=== PATIENT | female | born 2000 | race Caucasian/White ===

== ENCOUNTER 2022-07-09 10:23 | Emergency (ER) | payer BC, OTHER ==
[2022-07-09 10:32] VITALS: BP 137/78; PULSE 99; RESP 18; TEMP 97.8
[2022-07-09] MEDS ORDERED: SODIUM CHLORIDE 0.9% 1,000 ML IV ONE (11:26)
[2022-07-09 11:52] LABS: Basophils % (A) 0 %; Eosinophils # (A) 0.1 k/uL (0-0.7); Eosinophils % (A) 2 %; HCT 40.3 % (34.0-46.0); HGB 13.7 gm/dL (11.4-16.0); Lymphocytes # (A) 1.2 k/uL (1.0-4.8); Lymphocytes % (A) 21 %; MCH 29.9 pg (25.0-35.0); MCHC 33.9 g/dL (31.0-37.0); MCV 88.1 fL (80.0-100.0); Mean Platelet Volume 7.7; Monocytes # (A) 0.3 k/uL (0-1.0); Monocytes % (A) 5 %; Neutrophils # (A) 3.9 k/uL (1.3-7.7); Neutrophils % (A) 70 %; Platelet Count 217 k/uL (150-450); RBC 4.57 m/uL (3.80-5.40); WBC 5.6 k/uL (3.8-10.6)
--- NOTE | 2022-07-09 11:58 | ED ---
General Adult HPI - General Chief complaint: Vaginal Bleeding Stated complaint: 12 wks preg, bleeding & cramping Time Seen by Provider: 07/09/22 11:19 Source: patient, RN notes reviewed Mode of arrival: ambulatory Limitations: no limitations - History of Present Illness Initial comments: 21-year-old female with no significant past medical history presents to the emergency department with chief complaint of vaginal bleeding. She reports bright red blood vaginal blood since last night. She complains of accompanying symptoms of pelvic cramping and lower back pain. She has not tried anything for her symptoms. She denies headache, dizziness, fatigue, shortness of breath, chest pain, palpitations, abdominal pain, nausea, vomiting, diarrhea dysuria, hematuria. Denies hx of trauma or recent falls. Denies hx of miscarriage. She reports having a yeast infection last week and was treated with monistat. - Related Data Allergies Allergy/AdvReac Type Severity Reaction Status Date / Time amoxicillin Allergy Rash/Hives Verified 07/09/22 10:32 Review of Systems ROS Statement: Those systems with pertinent positive or pertinent negative responses have been documented in the HPI. ROS Other: All systems not noted in ROS Statement are negative. Past Medical History Past Medical History: No Reported History History of Any Multi-Drug Resistant Organisms: None Reported Past Surgical History: No Surgical Hx Reported Past Psychological History: No Psychological Hx Reported Smoking Status: Current every day smoker Past Alcohol Use History: None Reported Past Drug Use History: None Reported General Exam Limitations: no limitations General appearance: alert, in no apparent distress Head exam: Present: atraumatic, normocephalic, normal inspection Eye exam: Present: normal appearance, PERRL, EOMI. Absent: scleral icterus, conjunctival injection, periorbital swelling ENT exam: Present: normal exam, mucous membranes moist Neck exam: Present: normal inspection. Absent: tenderness, meningismus, lymphadenopathy Respiratory exam: Present: normal lung sounds bilaterally. Absent: respiratory distress, wheezes, rales, rhonchi, stridor Cardiovascular Exam: Present: regular rate, normal rhythm, normal heart sounds. Absent: systolic murmur, diastolic murmur, rubs, gallop, clicks GI/Abdominal exam: Present: soft, normal bowel sounds. Absent: distended, tenderness, guarding, rebound, rigid Extremities exam: Present: normal inspection, full ROM, normal capillary refill. Absent: tenderness, pedal edema, joint swelling, calf tenderness Back exam: Present: normal inspection Neurological exam: Present: alert, oriented X3, CN II-XII intact Psychiatric exam: Present: normal affect, normal mood Skin exam: Present: warm, dry, intact, normal color. Absent: rash Course Vital Signs 07/09/22 07/09/22 10:29 13:03 Temperature 97.8 F Pulse Rate 99 Respiratory 18 18 Rate Blood Pressure 137/78 O2 Sat by Pulse 99 Oximetry Medical Decision Making - Medical Decision Making Was pt. sent in by a medical professional or institution (, [facility], [facility], urgent care, hospital, or [facility]...) When possible be specific @ -[No] Did you speak to anyone other than the patient for history (EMS, parent, family, police, friend...)? What history was obtained from this source @ -[No] Did you review nursing and triage notes (agree or disagree)? Why? @ -[I reviewed and agree with nursing and triage notes] Were old charts reviewed (outside hosp., previous admission, EMS record, old EKG, old radiological studies, urgent care reports/EKG's, [facility] records)? Report findings @ -[No old charts were reviewed] Differential Diagnosis (chest pain, altered mental status, abdominal pain women, abdominal pain men, vaginal bleeding, weakness, fever, dyspnea, syncope, headache, dizziness, GI bleed, back pain, seizure, CVA, palpatations, mental health)? @ -[not applicable] EKG interpreted by me (3pts min.). @ -[As above] X-rays interpreted by me (1pt min.). @ -[None done] CT interpreted by me (1pt min.). @ -[None done] U/S interpreted by me (1pt. min.). @ - Intrauterine demise impending , no heart tones were detected What testing was considered but not performed or refused? (CT, X-rays, U/S, labs)? Why? @ -[None] What meds were considered but not given or refused? Why? @ -[None] Did you discuss the management of the patient with other professionals (professionals i.e. , [facility], [facility], lab, RT, psych nurse, oncology social work, real estate lawyer, teacher, cra officer, counseling case manager)? Give summary @ -[No] Was smoking cessation discussed for >3mins.? @ -[No] Was critical care preformed (if so, how long)? @ -[No] Were there social determinants of health that impacted care today? How? (Homelessness, low income, unemployed, alcoholism, drug addiction, transportation, low edu. Level, literacy, decrease access to med. care, fpc, rehab)? @ -[No] Was there de-escalation of care discussed even if they declined (Discuss DNR or withdrawal of care, Hospice)? DNR status @ -[No] What co-morbidities impacted this encounter? (DM, HTN, Smoking, COPD, CAD, Cancer, CVA, ARF, Chemo, Hep., AIDS, mental health diagnosis, sleep apnea, morbi d obesity)? @ -[None] Was patient admitted / discharged? Hospital course, mention meds given and route, prescriptions, significant lab abnormalities, going to OR and other pertinent info. @ -21-year-old female presents to the emergency department with a chief complaint of vaginal bleeding in . She history and physical pe rformed. Physical exam is essentially unremarkable heart rate regular rate and rhythm lung sounds clear to auscultation bilaterally. C ultrasound results above. Labs remarkable for Labs remarkable for WBC is 5.6, hemoglobin 13.7, beta hCG 1628.3 Patient was given IV fluids with symptomatic relief in the emergency department. I recommend close follow-up with her [employer] within 1-2 days. Patient was discharged in stable condition, and all return precautions were discussed. Patient verbalized understanding. I discussed the case with YASMANI Laird who agrees with plan of care. Undiagnosed new problem with uncertain prognosis? @ -[No] Drug Therapy requiring intensive monitoring for toxicity (Heparin, Nitro, Insulin, Cardizem)? @ -[No] Were any procedures done? @ -[No] Diagnosis/symptom? @ -threatened demise Acute, or Chronic, or Acute on Chronic? @ -acute Uncomplicated (without systemic symptoms) or Complicated (systemic symptoms)? @ -uncomplicated Side effects of treatment? @ -[No] Exacerbation, Progression, or Severe Exacerbation? @ -[No] Poses a threat to life or bodily function? How? (Chest pain, USA, CA, pneumonia, PE, COPD, DKA, ARF, appy, cholecystitis, CVA, Diverticulitis, Homicidal, Suicidal, threat to staff... and all critical care pts) @ -[No] - Lab Data Result diagrams: 07/09/22 11:42 07/09/22 11:42 Lab Results 07/09/22 07/09/22 07/09/22 Range/Units 11:40 11:42 11:42 WBC 5.6 (3.8-10.6) k/uL RBC 4.57 (3.80-5.40) m/uL Hgb 13.7 (11.4-16.0) gm/dL Hct 40.3 (34.0-46.0) % MCV 88.1 (80.0-100.0) fL MCH 29.9 (25.0-35.0) pg MCHC 33.9 (31.0-37.0) g/dL RDW 13.0 (11.5-15.5) % Plt Count 217 (150-450) k/uL MPV 7.7 Neutrophils % 70 % Lymphocytes % 21 % Monocytes % 5 % Eosinophils % 2 % Basophils % 0 % Neutrophils # 3.9 (1.3-7.7) k/uL Lymphocytes # 1.2 (1.0-4.8) k/uL Monocytes # 0.3 (0-1.0) k/uL Eosinophils # 0.1 (0-0.7) k/uL Basophils # 0.0 (0-0.2) k/uL Sodium 141 (137-145) mmol/L Potassium 3.8 (3.5-5.1) mmol/L Chloride 108 H (98-107) mmol/L Carbon Dioxide 26 (22-30) mmol/L Anion Gap 7 mmol/L BUN 8 (7-17) mg/dL Creatinine 0.58 (0.52-1.04) mg/dL Est GFR (CKD-EPI)AfAm >90 (>60 ml/min/1.73 sqM) Est GFR (CKD-EPI)NonAf >90 (>60 ml/min/1.73 sqM) Glucose 86 (74-99) mg/dL Calcium 9.2 (8.4-10.2) mg/dL HCG, Quant 1628.3 mIU/mL Blood Type Blood Type Confirm A Positive Blood Type Recheck Bld Type Recheck Status Antibody Screen Spec Expiration Date 07/09/22 Range/Units 11:42 WBC (3.8-10.6) k/uL RBC (3.80-5.40) m/uL Hgb (11.4-16.0) gm/dL Hct (34.0-46.0) % MCV (80.0-100.0) fL MCH (25.0-35.0) pg MCHC (31.0-37.0) g/dL RDW (11.5-15.5) % Plt Count (150-450) k/uL MPV Neutrophils % % Lymphocytes % % Monocytes % % Eosinophils % % Basophils % % Neutrophils # (1.3-7.7) k/uL Lymphocytes # (1.0-4.8) k/uL Monocytes # (0-1.0) k/uL Eosinophils # (0-0.7) k/uL Basophils # (0-0.2) k/uL Sodium (137-145) mmol/L Potassium (3.5-5.1) mmol/L Chloride (98-107) mmol/L Carbon Dioxide (22-30) mmol/L Anion Gap mmol/L BUN (7-17) mg/dL Creatinine (0.52-1.04) mg/dL Est GFR (CKD-EPI)AfAm (>60 ml/min/1.73 sqM) Est GFR (CKD-EPI)NonAf (>60 ml/min/1.73 sqM) Glucose (74-99) mg/dL Calcium (8.4-10.2) mg/dL HCG, Quant mIU/mL Blood Type A Positive Blood Type Confirm Blood Type Recheck No Previous Record Bld Type Recheck Status CABO Indicated Antibody Screen NEGATIVE Spec Expiration Date 07/12/20222341 Disposition Clinical Impression: demise, Miscarriage at 8 to 28 weeks gestation Disposition: HOME SELF-CARE Condition: Stable Instructions (If sedation given, give patient instructions): Miscarriage (ED) Is patient prescribed a controlled substance at d/c from ED?: No Referrals: None,Stated [Primary Care Provider] - 1-2 days Gloria Rodriguez MD [STAFF PHYSICIAN] - 1-2 days Time of Disposition: 12:52
[2022-07-09 12:11] LABS: African American GFR (CKD) >90 (>60 ml/min/1.73 sqM); Anion Gap 7 mmol/L; Blood Urea Nitrogen 8 mg/dL (7-17); Calcium 9.2 mg/dL (8.4-10.2); Carbon Dioxide 26 mmol/L (22-30); Chloride 108 mmol/L (98-107); Glucose 86 mg/dL (74-99); Non-African American GFR(CKD) >90 (>60 ml/min/1.73 sqM); Potassium 3.8 mmol/L (3.5-5.1); Sodium 141 mmol/L (137-145)
[2022-07-09 12:25] LABS: HCG,Quantitative Serum 1628.3 mIU/mL
--- NOTE | 2022-07-09 12:32 | US ---
EXAMINATION TYPE: Transabdominal DATE OF EXAM: 07/09/2022 12:20 PM COMPARISON: NONE CLINICAL HISTORY: vaginal bleeding. Patient states spotting that started this morning. Positive beta hCG test. EXAM PERFORMED: Transabdominal (TA) EXAM MEASUREMENTS: GESTATIONAL AGE / DATING Physician Established: Not yet established Dates by LMP: (12 weeks/5 days) EDC: 01/16/2023 Dates by First Scan: No previous this is first scan Dates by Current Scan for: ( 8 weeks/4 days) EDC: 02/14/2023 MATERNAL ANATOMY Uterus: 11.4 x 6.6 x 5.0 cm Right Ovary: 3.6 x 1.6 x 1.8 cm Left Ovary: 3.2 x 2.0 x 1.5 cm Post CDS / Adnexa: no free fluid Presence of free fluid: no Presence of corpus luteal cyst: no Presence of subchorionic bleed: no GESTATION / SURVEY CRL: 2.0 cm (8 weeks/4 days) MSD: seen, not measured Yolk Sac (normal less than 6mm): Not visualized at time of scan Heart Rate: 0 bpm IUP: Demise Date of LMP: 04/11/2022, G1 Beta HcG (if available): Not available at this time GS and CRL visualized. No yolk sac seen. Negative FHT's with m-mode and color doppler performed. Single intrauterine gestation seen as gestational sac and pole identified. Yolk sac not clearly seen. Abnormal appearance to the gestational sac which appears elongated inferiorly. heart ton es cannot be detected despite several attempts. No free fluid in pelvic cul-de-sac. Both ovaries identified. No suspicious adnexal mass seen. IMPRESSION: Ultrasound findings are consistent with intrauterine demise and likely impending ab ortion as detailed above.
== END 2022-07-09 13:04 | disposition home or self-care (01) ==
LOC: EC 10:23
DX: O03.9 Complete or unspecified spontaneous abortion without complication (principal); O36.4XX0 Maternal care for intrauterine death, not applicable or unspecified; O99.333 Smoking (tobacco) complicating pregnancy, third trimester; F17.200 Nicotine dependence, unspecified, uncomplicated; Z88.0 Allergy status to penicillin; Z3A.12 12 weeks gestation of pregnancy
CPT/HCPCS: 36415; 76801; 80048; 84702; 85025; 86850; 86900; 86901; 96360; 99284

== ENCOUNTER 2024-07-06 06:00 | Inpatient (IN) | payer OTHER ==
[2024-07-06] MEDS: LACTATED RINGERS 1,000 ML IV SCH (06:30)
[2024-07-06] MEDS ORDERED: miSOPROStoL 200 MCG TAB PO PRN (06:31)
[2024-07-06] MEDS ORDERED: METHYLERGONOVINE 0.2 MG/ML 1 ML AMP IM PRN (06:31)
[2024-07-06] MEDS ORDERED: TERBUTALINE 1 MG/ML VIAL SQ PRN (06:31)
[2024-07-06] MEDS ORDERED: miSOPROStoL 200 MCG TAB RECTAL PRN (06:31)
[2024-07-06] MEDS ORDERED: OXYTOCIN 10 UNIT/ML 1 ML VIAL IM PRN (06:31)
[2024-07-06] MEDS ORDERED: CARBOPROST TROMETHAMINE 250 MCG/ML 1 ML AMP IM PRN (06:31)
[2024-07-06] MEDS ORDERED: LIDOCAINE 0.5% (PF) 5 MG/ML (50 ML SDV) SQ PRN (06:31)
[2024-07-06] MEDS ORDERED: TRANEXAMIC 1,000 MG/100ML-NACL 1,000 MG in EMPTY BAG 1 BAG IV PRN (06:31)
[2024-07-06 07:06] LABS: Basophils % (A) 0 %; Eosinophils # (A) 0.2 k/uL (0-0.7); Eosinophils % (A) 2 %; HCT 36.7 % (34.0-46.0); HGB 11.7 gm/dL (11.4-16.0); Lymphocytes # (A) 1.5 k/uL (1.0-4.8); Lymphocytes % (A) 17 %; MCH 28.6 pg (25.0-35.0); MCV 89.5 fL (80.0-100.0); Mean Platelet Volume 9.2; Monocytes # (A) 0.5 k/uL (0-1.0); Monocytes % (A) 6 %; Neutrophils # (A) 6.9 k/uL (1.3-7.7); Neutrophils % (A) 74 %; Platelet Count 196 k/uL (150-450); RDW 13.7 % (11.5-15.5); WBC 9.2 k/uL (3.8-10.6)
[2024-07-06] MEDS ORDERED: NALBUPHINE 10 MG/ML (10 ML MDV) IV PRN (08:24)
--- NOTE | 2024-07-06 08:24 | P.HPOB ---
History of Present Illness H&P Date: 07/06/24 Chief Complaint: IUP at 40 and 4/7 weeks, SGA This is a 23-year-old 3 para 0-0-2-0 at 40-4/7 weeks that presents to labor and delivery for induction of labor secondary to postdates and SGA. Patient has been receiving routine care which has been essentially uncomplicated. Patient did have an ultrasound on revealing an estimated weight of 7th percentile, all normal KARLA, normal testing with a BPP of 8 out of 8, normal UA Dopplers. Patient was counseled on ultrasound findings on and was hoping to avoid induction of labor, after discussion patient agreed if she did not go into labor through the weekend she was willing to present today for induction. Patient does note good movement she denies contractions through the weekend. On blood work this patient has a blood type of A+, rubella status immune, hepatitis B surface engine negative, HIV negative, RPR is nonreactive, grew beta strep cultures negative. Review of Systems Constitutional: Denies chills, Denies fatigue, Denies fever Ears, nose, mouth and throat: Denies headache Cardiovascular: Reports leg edema Respiratory: Denies dyspnea Gastrointestinal: Denies constipation, Denies diarrhea, Denies nausea, Denies vomiting Genitourinary: Reports Past Medical History Past Medical History: No Reported History History of Any Multi-Drug Resistant Organisms: None Reported Past Surgical History: No Surgical Hx Reported Past Anesthesia/Blood Transfusion Reactions: No Reported Reaction Past Psychological History: No Psychological Hx Reported Smoking Status: Never smoker Past Alcohol Use History: None Reported Past Drug Use History: None Reported - Past Family History Father Family Medical History: No Reported History Medications and Allergies Home Medications Medication Instructions Recorded Confirmed Type Vit No.179/Iron/Folic 1 tab PO DAILY 07/06/24 07/06/24 History [ Tablet] Allergies Allergy/AdvReac Type Severity Reaction Status Date / Time amoxicillin Allergy Rash/Hives Verified 07/06/24 06:30 Exam Osteopathic Statement: *. No significant issues noted on an osteopathic structural exam other than those noted in the History and Physical/Consult. Vital Signs Temp Pulse Resp BP Pulse Ox 07/06/24 06:42 97.9 F 75 16 122/66 99 Intake and Output 07/05/24 07/06/24 07/06/24 22:59 06:59 14:59 Other: Weight 93.44 kg Targeted physical exam is performed this date General Is well-nourished well- developed female in no acute distress, breathing is nonlabored, heart has a regular rate and rhythm, abdomen is gravid, on cervical exam she is 1/60/-2 station amniotomy is attempted with no fluid obtained. heart tones are noted to be category 1 and she is nikko irregularly. Pitocin has begun. Results Result Diagrams: 07/06/24 06:30 Assessment and Plan (1) Post-dates Current Visit: Yes Status: Acute Code(s): O48.0 - POST-TERM SNOMED Code(s): 11760025 (2) SGA (small for gestational age), , affecting care of mother, antepartum Current Visit: Yes Status: Acute Code(s): O36.5990 - MATERN CARE FOR OTH OR SUSP POOR FETL GRTH, UNSP TRI, UNSP SNOMED Code(s): 111690125 Plan: 23-year-old 3 para 0-0-2-0 at 40-4/7 weeks presents for induction of labor. Patient is admitted upon evaluation Pitocin is started for induction of labor. Patient is counseled on options for analgesia including Nubain, nitrous, epidural. She will consider. Continuous monitoring, clear liquid diet as tolerated.
[2024-07-06] MEDS: OXYTOCIN 30 UNITS/500 ML NS 30 UNIT in SALINE 1 500ML.BAG IV SCH (11:30)
[2024-07-06] MEDS ORDERED: fentaNYL (PF) 50 MCG/ML 5 ML AMP ONE (18:12)
[2024-07-06] MEDS ORDERED: SODIUM CHLORIDE 0.9% 250 ML BAG ONE (18:12)
[2024-07-06] MEDS ORDERED: ROPIVACAINE 5 MG/ML 30 ML VIAL ONE (18:12)
[2024-07-07] MEDS: ONDANSETRON 4 MG/2 ML VIAL IVP STA (00:39)
[2024-07-07] MEDS: ACETAMINOPHEN IV (For NPO) 1,000 MG in EMPTY BAG 1 BAG IVPB STA (02:50)
[2024-07-07] MEDS ORDERED: ZOLPIDEM 5 MG TAB PO PRN (03:05)
[2024-07-07] MEDS ORDERED: diphenhydrAMINE 50 MG CAP PO PRN (03:05)
[2024-07-07] MEDS ORDERED: diphenhydrAMINE 50 MG/ML 1 ML VIAL IVP PRN ×2 (03:05)
[2024-07-07] MEDS ORDERED: diphenhydrAMINE 25 MG CAP PO PRN (03:05)
[2024-07-07] MEDS ORDERED: SIMETHICONE 80 MG CHEWABLE PO PRN (03:05)
[2024-07-07] MEDS ORDERED: LANOLIN CREAM 1 GM TUBE TOPICAL PRN (03:05)
[2024-07-07] MEDS ORDERED: HYDROCORTISONE 2.5% RECTAL CREAM 30 GM TUBE RECTAL PRN (03:05)
--- NOTE | 2024-07-07 03:05 | P.PROBDLV ---
Vaginal Delivery Note - . Vaginal Delivery Note: 23-year-old 1 para 0 at 40-4/7 weeks presented this morning for induction of labor secondary to SGA and postdates. Patient was admitted Pitocin induction of labor was begun and amniotomy was performed. Meconium stained fluid was noted throughout the day. Patient progressed through labor becoming uncomfortable and requesting epidural. At 12 hours status post rupture of membranes patient was begun on Kefzol 2 g for prolonged rupture of membranes. GBS culture was noted to be negative. Patient progressed to complete began pushing and had a normal spontaneous vaginal delivery of a viable male infant at 2:48. Thick meconium stained fluid was appreciated at the time of delivery. Umbilical cord was doubly clamped and cut was handed off to waiting RN. Placenta was delivered spontaneously intact with a three-vessel cord being noted. A small first-degree vaginal laceration was appreciated this was repaired in the usual fashion with 3-0 Rapide. After closure hemostasis was noted. A maternal temp was appreciated just prior to delivery. Ofirmev was given. All counts were noted to be correct x 2 at the end of the delivery. was taken to the nursery for evaluation secondary to thick meconium stained fluid and elevated temperature. Patient tolerated delivery well and is resting comfortably.
[2024-07-07] MEDS: IBUPROFEN 800 MG TAB PO SCH (09:01)
[2024-07-07] MEDS: SENNOSIDES-DOCUSATE SODIUM 1 EACH TAB PO SCH (09:01)
[2024-07-07] MEDS: PRENATAL VIT-IRON-FOLIC ACID 1 EACH TABLET PO SCH (09:01)
[2024-07-07] MEDS: ACETAMINOPHEN TAB 500 MG TAB PO SCH (14:21)
[2024-07-08 06:11] LABS: Basophils # (A) 0.1 k/uL (0-0.2); Basophils % (A) 0 %; Eosinophils # (A) 0.1 k/uL (0-0.7); Eosinophils % (A) 1 %; HCT 31.4 % (34.0-46.0); HGB 10.3 gm/dL (11.4-16.0); Lymphocytes # (A) 2.2 k/uL (1.0-4.8); Lymphocytes % (A) 18 %; MCH 29.8 pg (25.0-35.0); MCHC 32.7 g/dL (31.0-37.0); MCV 91.2 fL (80.0-100.0); Mean Platelet Volume 9.2; Monocytes # (A) 0.6 k/uL (0-1.0); Monocytes % (A) 5 %; Neutrophils # (A) 9.2 k/uL (1.3-7.7); Neutrophils % (A) 75 %; Platelet Count 145 k/uL (150-450); RBC 3.44 m/uL (3.80-5.40); WBC 12.3 k/uL (3.8-10.6)
--- NOTE | 2024-07-08 12:30 | P.PNOBGVD ---
Subjective - Subjective Principal diagnosis: day #1, status postnormal spontaneous vaginal delivery Interval history: Patient is doing well . She is ambulating and voiding without difficulty. Breast-feeding is going well. remains in special care nursery Patient reports: Reports appetite normal, Reports voiding normally, Reports pain well controlled, Reports ambulating normally [place]: doing well, nursing well Objective - Latest Vital Signs Latest vital signs: Vital Signs Temp Pulse Resp BP Pulse Ox 07/08/24 08:38 97.7 F 80 16 118/82 07/08/24 04:56 97.5 F L 93 16 113/74 99 07/07/24 20:16 98.8 F 63 16 99/62 07/07/24 16:50 97.8 F 77 16 124/79 07/07/24 12:36 97.7 F 61 16 120/76 - Exam Extremities: Present: normal, edema Abdomen: Present: normal appearance, soft Uterus: Present: normal, firm - Labs Labs: Abnormal Lab Results - Last 24 Hours (Table) 07/08/24 Range/Units 05:03 WBC 12.3 H (3.8-10.6) k/uL RBC 3.44 L (3.80-5.40) m/uL Hgb 10.3 L (11.4-16.0) gm/dL Hct 31.4 L (34.0-46.0) % Plt Count 145 L (150-450) k/uL Neutrophils # 9.2 H (1.3-7.7) k/uL Assessment and Plan (1) Post-dates Current Visit: Yes Status: Acute Code(s): O48.0 - POST-TERM SNOMED Code(s): 37430195 (2) SGA (small for gestational age), , affecting care of mother, antepartum Current Visit: Yes Status: Acute Code(s): O36.5990 - MATERN CARE FOR OTH OR SUSP POOR FETL GRTH, UNSP TRI, UNSP SNOMED Code(s): 112030839 (3) Status post normal vaginal delivery Current Visit: Yes Status: Acute Code(s): CYR4694 - SNOMED Code(s): 411014995 (4) Obstetrical laceration, second degree Current Visit: Yes Status: Acute Code(s): O70.1 - SECOND DEGREE PERINEAL LACERATION DURING DELIVERY SNOMED Code(s): 1420948 Plan: 23-year-old G1 now P1 status post normal spontaneous vaginal delivery. Patient is doing well . remains in special care nursery. Plan to continue routine care.
[2024-07-09 07:58] VITALS: BP 131/81; PULSE 98; RESP 18; TEMP 97.6
--- NOTE | 2024-07-09 11:41 | P.DS ---
Providers Date of admission: 07/06/24 06:00 Expected date of discharge: 07/09/24 Attending physician: Akila Sun Primary care physician: Stated None - Discharge Diagnosis(es) (1) Post-dates Current Visit: Yes Status: Acute (2) SGA (small for gestational age), , affecting care of mother, antepartum Current Visit: Yes Status: Acute (3) Status post normal vaginal delivery Current Visit: Yes Status: Acute (4) Obstetrical laceration, second degree Current Visit: Yes Status: Acute Hospital Course: 23-year-old [id number] that presented to labor and delivery at 40-4/7 weeks for induction of labor secondary to postdates and SGA. Patient was admitted and Cervidil was placed without difficulty. Patient made both good progress through the evening and in the morning amniotomy was performed. Patient progressed through labor eventually becoming uncomfortable and did get an epidural for analgesia. Patient continued through labor eventually becoming completely dilated. Once completely dilated patient began pushing and had a normal spontaneous vaginal delivery of a viable male infant at 248, weight of 6 pounds 4.2 ounces. Patient did have noted meconium stained fluid upon rupture of membranes, maternal temp prior to delivery. Patient was treated with ampicillin and given Ofirmev for maternal temp. was taken back to the special care nursery for monitoring secondary to maternal type. Please see pediatric report for infant care. Patient's course has been uneventful. In this day #2 she is ambulating and voiding without difficulty. She is tolerating a regular diet without nausea or vomiting. States her pain is well-controlled. She denies concerns and would like discharge home later today. is doing well and is presumed to be discharged later today. Patient Condition at Discharge: Good Plan - Discharge Summary New Discharge Prescriptions: No Action Vit No.179/Iron/Folic [ Tablet] 1 tab PO DAILY Discharge Medication List Vit No.179/Iron/Folic [ Tablet] 1 tab PO DAILY 07/06/24 [History] Follow up Appointment(s)/Referral(s): Akila Sun DO [Doctor of Osteopathic Medicine] - 08/17/24 3:15 pm Patient Instructions/Handouts: Vaginal Delivery (DC), Vaginal Delivery (GEN) Activity/Diet/Wound Care/Special Instructions: No tub baths or intercourse until 6 weeks . [id number] ibuprofen 600 mg or 3 tablets every 6 hours as needed for pain. Patient is to call the office to make a routine visit for 6 weeks. Should she have any concerns prior to this visit she is urged to call the office. Discharge Disposition: HOME SELF-CARE
== END 2024-07-09 13:30 | disposition home or self-care (01) | DRG 807 ==
LOC: 4FBP 06:00 → EDSTATUS 06:00
PROVIDERS: ADMIT Obstetrics & Gynecology Obstetrics; ATTEND Obstetrics & Gynecology Obstetrics
PROC: 10E0XZZ Delivery of Products of Conception, External Approach (ICD-10-PCS; principal; 2024-07-07)
PROC: 0KQM0ZZ Repair Perineum Muscle, Open Approach (ICD-10-PCS; 2024-07-07)
PROC: 10907ZC Drainage of Amniotic Fluid, Therapeutic from Products of Conception, Via Natural or Artificial Opening (ICD-10-PCS; 2024-07-07)
PROC: 3E033VJ Introduction of Other Hormone into Peripheral Vein, Percutaneous Approach (ICD-10-PCS; 2024-07-07)
DX: O77.0 Labor and delivery complicated by meconium in amniotic fluid (principal); Z37.0 Single live birth; O36.5930 Maternal care for other known or suspected poor fetal growth, third trimester, not applicable or unspecified; O70.1 Second degree perineal laceration during delivery; O48.0 Post-term pregnancy; Z3A.40 40 weeks gestation of pregnancy; Z88.1 Allergy status to other antibiotic agents
CPT/HCPCS: 85025; 86850; 86900; 86901